=== PATIENT | female | born 1965 | race Caucasian/White ===

== ENCOUNTER 2020-07-20 12:53 | Emergency (ER) | payer OTHER ==
[~2020-07-20] VITALS: Ht 157.5 cm; Wt 72.6 kg
[2020-07-20 13:02] VITALS: BP 137/77
[2020-07-20] MEDS ORDERED: IBUPROFEN 800 MG TAB PO ONE (15:00)
== END 2020-07-20 15:14 | disposition home or self-care (01) ==
LOC: ER 12:53
DX: S93.401A Sprain of unspecified ligament of right ankle, initial encounter (principal); W01.0XXA Fall on same level from slipping, tripping and stumbling without subsequent striking against object, initial encounter; Y93.01 Activity, walking, marching and hiking; Y92.89 Other specified places as the place of occurrence of the external cause; Y99.8 Other external cause status
CPT/HCPCS: 73610